=== PATIENT | female | born 1990 | race Caucasian/White ===

== ENCOUNTER 2023-05-09 13:57 | Outpatient (CLI) | payer MEDICAID, SELFPAY | END 2023-05-09 13:58 | disposition home or self-care (01) | PROVIDERS: Visit Provider Physician Assistant Medical | DX: R30.0 Dysuria (principal); N39.0 Urinary tract infection, site not specified | CPT/HCPCS: 87086; 87186 ==

== ENCOUNTER 2023-06-04 11:42 | Emergency (ER) | payer MEDICAID, SELFPAY ==
[2023-06-04] VITALS (27 sets, daily range): BP systolic 94–112; BP diastolic 57–84; PULSE 57–85; RESP 16; TEMP 36.3; O2SAT 97–100; BMI 20.3
--- NOTE | 2023-06-04 12:05 | ED.GENADULT ---
HPI - General Adult General Time Seen by Provider: 12:06 Date Seen: 06/04/23 Chief complaint: Syncope/Fainted Stated complaint: Syncopal Time Seen by Provider: 06/04/23 12:05 Source: patient, EMS and RN notes reviewed Mode of arrival: EMS Limitations: no limitations History of Present Illness HPI narrative: Tiera is a 33-year-old female brought in by EMS for syncopal evaluation, possible seizure activity. She was trying on wedding dresses, she started to see black spots and stated she had to sit down. She leaned back against a bed that was elevated behind her, reportedly went out to an was brought to the ground by her mom. Her mom noted her eyes rolled back her arms clinched up and her hands went into a fist this maybe lasted 10-15 seconds. They did call 911. Her mom noted that she was making gasping or gurgling sounds during this time. She did eat and drink this morning. No alcohol or drug use. She is a nonsmoker. She is not on any contraceptives, her significant other has had a vasectomy, they have 4 children together. She notes when EMS got there when she was just sitting, had another episode where she felt like everything was closing in on her, started noting her vision going, she states she did not completely go out that time but EMS laid her back. In the truck it happened again and during that time they noticed her to go into a sinus bradycardia at about 50 beats per minute. She again states she did not completely go out. She has not had this happen to her before. She has had anxiety and has had a panic attack where she had chest discomfort. EMS did bring her in a C-collar but she states her mom witnessed no trauma, patient did not hit her head. Patient is denying any headache, no neck pain. Related Data Home Medications Medication Instructions Recorded Confirmed No Known Home Medications 06/04/23 06/04/23 Allergies Allergy/AdvReac Type Severity Reaction Status Date / Time cefaclor [From Ceclor] AdvReac Severe Hives Verified 06/04/23 11:49 Review of Systems Status of ROS: Reports: 6 or more systems reviewed and unremarkable except as noted in History and below PFSH PFS Social History Smoking Status: Never smoker Do you use any of these nicotine containing products: None Second hand tobacco smoke exposure: No How often do you have a drink containing alcohol: monthly or less AUDIT-C Alcohol total score: 1 Non-prescribed substance use: denies use service: No Exam Const: Vital Signs, click to edit/add: Vital Signs - 24 hr 06/04/23 11:48 06/04/23 11:49 06/04/23 11:49 Temperature 97.3 F L Pulse Rate 67 61 Pulse Rate [Pulse Oximeter] 65 Pulse Rate [orthos tatic lying Pulse Oximeter] Pulse Rate [orthos tatic sitting Puls e Oximeter] Pulse Rate [orthos tatic standing Pul se Oximeter] Respiratory Rate 16 Blood Pressure 109/67 Blood Pressure [Ri ght Upper Arm] 109/67 Blood Pressure [or thostatic lying Ri ght Arm] Blood Pressure [or thostatic sitting Right Arm] Blood Pressure [or thostatic standing Right Arm] Pulse Oximetry 99 98 99 Oxygen Delivery Dc thod Room Air 06/04/23 11:50 06/04/23 12:00 06/04/23 12:02 Temperature Pulse Rate 65 72 63 Pulse Rate [Pulse Oximeter] Pulse Rate [orthos tatic lying Pulse Oximeter] Pulse Rate [orthos tatic sitting Puls e Oximeter] Pulse Rate [orthos tatic standing Pul se Oximeter] Respiratory Rate Blood Pressure 106/58 L 106/64 Blood Pressure [Ri ght Upper Arm] Blood Pressure [or thostatic lying Ri ght Arm] Blood Pressure [or thostatic sitting Right Arm] Blood Pressure [or thostatic standing Right Arm] Pulse Oximetry 99 98 97 Oxygen Delivery Me thod 06/04/23 12:13 06/04/23 12:22 06/04/23 12:30 Temperature Pulse Rate 67 Pulse Rate [Pulse Oximeter] Pulse Rate [orthos tatic lying Pulse Oximeter] 67 Pulse Rate [orthos tatic sitting Puls e Oximeter] Pulse Rate [orthos tatic standing Pul se Oximeter] Respiratory Rate Blood Pressure 99/61 Blood Pressure [Ri ght Upper Arm] Blood Pressure [or thostatic lying Ri ght Arm] 94/63 Blood Pressure [or thostatic sitting Right Arm] Blood Pressure [or thostatic standing Right Arm] Pulse Oximetry 98 99 Oxygen Delivery Me thod 06/04/23 12:30 06/04/23 12:35 06/04/23 12:38 Temperature Pulse Rate 71 78 Pulse Rate [Pulse Oximeter] Pulse Rate [orthos tatic lying Pulse Oximeter] Pulse Rate [orthos tatic sitting Puls e Oximeter] 67 Pulse Rate [orthos tatic standing Pul se Oximeter] Respiratory Rate Blood Pressure 94/63 Blood Pressure [Ri ght Upper Arm] Blood Pressure [or thostatic lying Ri ght Arm] Blood Pressure [or thostatic sitting Right Arm] 112/84 Blood Pressure [or thostatic standing Right Arm] Pulse Oximetry 98 100 Oxygen Delivery Me thod 06/04/23 12:40 06/04/23 12:41 06/04/23 12:44 Temperature Pulse Rate 76 78 Pulse Rate [Pulse Oximeter] Pulse Rate [orthos tatic lying Pulse Oximeter] Pulse Rate [orthos tatic sitting Puls e Oximeter] Pulse Rate [orthos tatic standing Pul se Oximeter] 70 Respiratory Rate Blood Pressure 112/84 107/69 Blood Pressure [Ri ght Upper Arm] Blood Pressure [or thostatic lying Ri ght Arm] Blood Pressure [or thostatic sitting Right Arm] Blood Pressure [or thostatic standing Right Arm] 107/69 Pulse Oximetry 100 98 Oxygen Delivery Me thod 06/04/23 12:45 06/04/23 13:00 06/04/23 13:02 Temperature Pulse Rate 85 67 69 Pulse Rate [Pulse Oximeter] Pulse Rate [orthos tatic lying Pulse Oximeter] Pulse Rate [orthos tatic sitting Puls e Oximeter] Pulse Rate [orthos tatic standing Pul se Oximeter] Respiratory Rate Blood Pressure 101/60 Blood Pressure [Ri ght Upper Arm] Blood Pressure [or thostatic lying Ri ght Arm] Blood Pressure [or thostatic sitting Right Arm] Blood Pressure [or thostatic standing Right Arm] Pulse Oximetry 100 99 100 Oxygen Delivery Me thod 06/04/23 13:22 06/04/23 13:30 06/04/23 13:43 Temperature Pulse Rate 64 66 69 Pulse Rate [Pulse Oximeter] Pulse Rate [orthos tatic lying Pulse Oximeter] Pulse Rate [orthos tatic sitting Puls e Oximeter] Pulse Rate [orthos tatic standing Pul se Oximeter] Respiratory Rate Blood Pressure 99/65 96/66 Blood Pressure [Ri ght Upper Arm] Blood Pressure [or thostatic lying Ri ght Arm] Blood Pressure [or thostatic sitting Right Arm] Blood Pressure [or thostatic standing Right Arm] Pulse Oximetry 97 99 98 Oxygen Delivery Me thod Documenting provider has reviewed patient's vital signs: yes Common normals: no apparent distress, oriented x3, no limitations, healthy appearing, alert and well nourished General appearance: cooperative, comfortable, well kempt, well developed and anxious (minimally tearful at times) Nutritional appearance: thin Orientation/consciousness: Yes awake, Yes oriented to person, Yes oriented to place and Yes oriented to time HENMT: Common normals: normocephalic, head/scalp atraumatic, hearing grossly normal bilaterally, external ears normal, external nose normal, moist oral mucous membranes, oropharynx normal (no traumatic changes noted), dentition normal and gingiva normal Head and scalp: normocephalic and atraumatic Face and sinus: normal facial exam Nose: external nose normal External ear: external ears normal Eye: Common normals: PERRL, EOMs intact bilaterally, conjunctivae normal and no scleral icterus General eye: normal appearance of both eyes Conjunctiva: conjunctiva(e) normal Pupil: PERRL Neck & C-Spine: Common normals: full ROM (no midline or paraspinous tenderness, no pain with ROM), no lymphadenopathy, supple, no meningeal signs, no JVD and thyroid normal Thyroid: thyroid normal Lymph: Lymphatic: no lymphadenopathy noted Chest: Common normals: inspection of chest normal and palpation of chest normal Resp: Common normals: normal respiratory effort, no retractions, no use of accessory muscles and clear to auscultation bilaterally Auscultation: clear to auscultation bilaterally Cardio: Common normals: no JVD, regular rate, regular rhythm, S1 normal heart sound, S2 normal heart sound, no gallops, no clicks, no murmurs and no rub Rate: regular rate Rhythm: regular rhythm Heart sounds: S1 normal and S2 normal GI: Common normals: Normal to inspection, nondistended, normoactive bowel sounds present, soft to palpation, non-tender, no hepatosplenomegaly and no masses Palpation: soft and no hepatosplenomegaly Extremity: Common normals: no calf tenderness and no pedal edema Neuro: [place] Coma Scale: document GCS findings [place] coma scale eye opening: Spontaneous (4) [place] coma scale verbal response: Orientated (5) [place] coma scale motor response: Obey commands (6) [place] coma scale total score: 15 Common normals: oriented x3, CN's II-XII intact bilaterally, moves all extremities, no focal motor deficits and no sensory deficits noted Sensorium/orientation: awake, alert, oriented to person, oriented to place and oriented to time Meningeal signs: no meningeal signs Speech: speech normal Psych: Appearance: well kempt Course Course Hospital Course: Patient will be monitored on cardiac monitoring, pulse oximetry to rule out arrhythmia and hypoxia respectively. Will get appropriate labs. Head CT is highly unlikely to be indicative of any abnormality in a 33-year-old female that is neurologically intact at this time. If it is deemed that this was neurologic, MRI may be indicated but I do not feel it is emergently so at this time. Have reviewed with patient that I suspect with her going bradycardic into the 50s in the ambulance rig, recurrent symptoms with that but not as profound, that this may very well have been a vasovagal type syncope. Patients can exhibit some to necessity of muscles with vasovagal changes but we cannot completely rule out seizure disorder. I suspect she will have to have outpatient follow-up with Neurology and EEG testing. Will see water evaluation and workup finds here. EMS started a 500ml NS bolus, will complete that. Will check orthostatic vitals. Reevaluation(s) Time of Reevaluation #1: 15:19 Reevaluation #1: Patient and her fiance are reviewed the results of the tests which are normal. No evidence of arrhythmia, no evidence of orthostatic hypotension. D-dimer normal. She has had no further spells. She did get 500 mL of fluid from EMS but otherwise is just taken orals in after that. There is no evidence to suggest that this was a seizure. Did review with patient and her fiance that you can see some tonic brief posturing with syncope. Specially given that it was just her upper arms folded in and her hands clenched, do think that this certainly could support vasovagal syncope. Until she is had neurology workup, reviewed with patient that driving is not recommended, no alone swimming or bathing where she could some urge and around if this was indeed a seizure disorder. Vital Signs Vital signs: Initial Vital Signs Pulse Rate 67 06/04/23 11:48 Blood Pressure 109/67 06/04/23 11:48 Blood Pressure Mean 81 06/04/23 11:48 Pulse Oximetry 99 06/04/23 11:48 Vital Signs Pulse Rate 67 06/04/23 11:48 Blood Pressure 109/67 06/04/23 11:48 Pulse Oximetry 99 06/04/23 11:48 Temperature 97.3 F L 06/04/23 11:49 Pulse Rate 69 06/04/23 13:43 Respiratory Rate 16 06/04/23 11:49 Blood Pressure 96/66 06/04/23 13:43 Pulse Oximetry 98 06/04/23 13:43 Oxygen Delivery Method Room Air 06/04/23 11:49 Medical Decision Making Lab Data Lab results reviewed: Yes I reviewed the patient's lab results Labs: Lab Results 06/04/23 06/04/23 Range/Units 12:24 13:57 WBC 11.45 H (4.50-11.00) K/uL RBC 4.33 (4.00-5.20) m/uL Hgb 12.7 (12.0-16.0) gm/dL Hct 38.7 (33.0-51.0) % MCV 89 (80-100) fL MCH 29 (26-34) pg MCHC 33 (32-36) gm/dL RDW Coeff of Bin 12.4 (11.5-15.5) % Plt Count 208 (140-440) K/uL Neut % (Auto) 79.4 H (42.0-72.0) % Lymph % (Auto) 13.3 L (20-44) % [place] % (Auto) 5.9 (0.0-11.0) % Eos % (Auto) 0.9 (0.0-7.0) % Baso % (Auto) 0.3 (0.0-3.0) % Neut # (Auto) 9.10 H (1.7-7.0) K/uL Lymph # (Auto) 1.50 (0.90-2.90) K/uL [place] # (Auto) 0.70 (0.00-0.90) K/UL Eos # (Auto) 0.10 (0.00-0.50) K/uL Baso # (Auto) 0.00 (0.00-0.30) K/uL Abs Immat Gran (auto) 0.00 (0.00-0.30) K/uL Imm/Tot Granulo (auto) 0.2 % D-Dimer Quant (PE/DVT) < 0.27 (0.00-0.50) ug/ml Sodium 137 (135-149) mmol/L Potassium 3.8 (3.6-5.1) mmol/L Chloride 104 (96-114) mmol/L Carbon Dioxide 27 (20-32) mmol/L BUN 22 (5-24) mg/dL Creatinine 0.7 (0.5-1.5) mg/dL Estimated Creat Clear 99.86 Estimated GFR 117 ml/min Glucose 87 (60-115) mg/dL Lactate 0.9 (0.5-1.9) mmol/L Calcium 8.4 (8.4-10.6) mg/dL Magnesium 2.1 (1.5-2.6) mg/dL Total Bilirubin 0.4 (0.1-1.5) mg/dL AST 36 H (12-35) U/L ALT 32 (4-35) U/L Alkaline Phosphatase 64 (40-150) U/L C-Reactive Protein < 0.5 L (0.5-1.0) mg/dL NT-Pro-B Natriuret Pep 84 pg/mL Total Protein 6.7 (6.0-8.3) g/dL Albumin 4.0 (3.3-5.0) g/dL POC Troponin I 0.00 L 0.00 L (0.01-0.04) ng/ml ECG Data Attestation: I personally reviewed and interpreted this ECG as follows: (Normal sinus rhythm, 63 beats per minute. No ischemic change. QT corrected 423 milliseconds.) Prior ECG tracings: not available for review Interpretation: Repeat EKG timed 2:10 p.m. shows normal sinus rhythm, 63 beats per minute, no acute abnormality, QT corrected 450 milliseconds. Critical Care Time Critical Care Time Critical Care Time: No Discharge Plan Discharge Clinical Impression: Syncope Patient Disposition: Home, Self-Care Condition: Stable Instructions: Syncope (ED) Additional Instructions: Do recommend follow-up with her primary care provider within the next 3-5 days. I would suggest neurology referral and EEG consideration to rule out any neurogenic causes such as seizures. It seems likely that this may have been vasovagal syncope as the ambulance did document diminishing heart rate on their EKG with your 3rd episode of symptoms. We saw no evidence of further arrhythmia, no evidence of orthostatic hypotension while here. If you do have further episodes or spells of this nature in the interim, do need you to be emergently evaluated again. It is important to stay hydrated, drink enough as well as eat regular meals. Activity Level: Activity as Tolerated Discharge Diet: Regular Prescriptions: No Action No Known Home Medications Follow Up/Referrals: Provider,Not a Local [Primary Care Provider] - Stand Alone Forms: [facility] Medical Info Instructions
[2023-06-04 12:30] LABS: Lactate* 0.9 mmol/L (0.5-1.9)
[2023-06-04 12:35] LABS: Basophils Percent Auto 0.3 % (0.0-3.0); Eosinophils Percent Auto 0.9 % (0.0-7.0); Hematocrit 38.7 % (33.0-51.0); Hemoglobin* 12.7 gm/dL (12.0-16.0); Immature Granulocytes Pct Auto 0.2 %; Lymphocytes Percent Auto 13.3 % (20-44); Mean Corpuscular HGB Conc 33 gm/dL (32-36); Mean Corpuscular Hemoglobin 29 pg (26-34); Mean Corpuscular Volume 89 fL (80-100); Monocytes Percent Auto 5.9 % (0.0-11.0); Neutrophils Percent Auto 79.4 % (42.0-72.0); Platelet Count* 208 K/uL (140-440); RDW Coefficient of Variation % 12.4 % (11.5-15.5); Red Blood Count 4.33 m/uL (4.00-5.20); White Blood Count* 11.45 K/uL (4.50-11.00)
[2023-06-04 12:43] LABS: Slide Review Reflex No
--- NOTE | 2023-06-04 12:52 | ED.NURSE ---
Orthostatic blood pressures performed on pt. BP did not dip while changing positions. Pt denied any dizziness, lightheadedness, or other symptoms during checks. Dr. Boyer notified.
[2023-06-04 12:55] LABS: Chloride* 104 mmol/L (96-114); Sodium* 137 mmol/L (135-149)
[2023-06-04 12:56] LABS: Potassium* 3.8 mmol/L (3.6-5.1)
[2023-06-04 12:58] LABS: Alanine Aminotransferase* 32 U/L (4-35); Alkaline Phosphatase* 64 U/L (40-150); Aspartate Amino Transferase* 36 U/L (12-35); Bilirubin Total* 0.4 mg/dL (0.1-1.5); Blood Urea Nitrogen* 22 mg/dL (5-24); Carbon Dioxide* 27 mmol/L (20-32); Creatinine* 0.7 mg/dL (0.5-1.5); Est. Creatinine Clearance* 99.86; Estimated Glomerular Filt Rate 117 ml/min; Glucose* 87 mg/dL (60-115); Total Protein* 6.7 g/dL (6.0-8.3)
[2023-06-04 12:59] LABS: Calcium* 8.4 mg/dL (8.4-10.6); D Dimer Quantitative* < 0.27 ug/ml (0.00-0.50); Magnesium* 2.1 mg/dL (1.5-2.6)
[2023-06-04 13:04] LABS: C Reactive Protein* < 0.5 mg/dL (0.5-1.0)
[2023-06-04 13:12] LABS: NT Pro B Type NatriureticPept* 84 pg/mL
[2023-06-04] MEDS: ACETAMINOPHEN 500 MG TABLET 1000 MG PO (14:20)
== END 2023-06-04 15:31 | disposition home or self-care (01) ==
PROVIDERS: Emergency Provider Family Medicine
DX: R55 Syncope and collapse (principal)
CPT/HCPCS: 36415; 80053; 83605; 83735; 83880; 84484; 85025; 85379; 86140; 93005; 94761; 99284; A9270